=== PATIENT | male | born 1990 | race African-American/Black ===

== ENCOUNTER 2016-08-10 12:35 | Emergency (ER) | payer MEDICAID ==
[~2016-08-10] VITALS: Ht 180.3 cm; Wt 103.3 kg
[2016-08-10 12:48] VITALS: BP 129/77
[2016-08-10] MEDS ORDERED: IBUPROFEN 200 MG TABLET ONE (13:19)
[2016-08-10] MEDS ORDERED: ACETAMINOPHEN 500 MG TABLET ONE (13:19)
[2016-08-10] MEDS ORDERED: ACETAMINOPHEN 325 MG TABLET PO ONE (13:30)
[2016-08-10] MEDS ORDERED: IBUPROFEN 200 MG TABLET PO ONE (13:30)
== END 2016-08-10 14:42 | disposition home or self-care (01) ==
LOC: ED 14:35
DX: G44.219 Episodic tension-type headache, not intractable (principal)
CPT/HCPCS: 99283